=== PATIENT | male | born 1930 | race Caucasian/White ===

== ENCOUNTER 2017-11-15 12:02 | Emergency (ER) | payer MEDICARE, BC, OTHER ==
[2017-11-15 12:08] VITALS: BP 161/96
[2017-11-15] MEDS ORDERED: LORazepam 0.5 MG Tab PO ONE (12:21)
--- NOTE | 2017-11-15 13:07 | EDM.PDOC ---
ED HPI GENERAL MEDICAL PROBLEM - General Chief Complaint: Respiratory Problem Stated Complaint: AMBULANCE Time Seen by Provider: 11/15/17 12:07 Source of Information: Reports: EMS History Limitations: Reports: No Limitations - History of Present Illness INITIAL COMMENTS - FREE TEXT/NARRATIVE: History of present illness: []Patient lives at home with his then called the ambulance while she was showering this morning. Complaint was shortness of breath and loneliness. 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 EMS stated that the call came in as shortness of breath and when they arrived he appeared anxious with stable vital signs. He was stating that he's having some family issues with his kids and is very upset over this. Review of systems: As per history of present illness and below otherwise all systems reviewed and negative. Past medical history: As per history of present illness and as reviewed below otherwise noncontributory. Surgical history: As per history of present illness and as reviewed below otherwise noncontributory. Social history: No reported history of drug or alcohol abuse. Family history: As per history of present illness and as reviewed below otherwise noncontributory. Physical exam: General: Well developed, well nourished in NAD HEENT: Atraumatic, normocephalic, pupils reactive, negative for conjunctival pallor or scleral icterus, mucous membranes moist, throat clear, neck supple, nontender, trachea midline. Lungs: Clear to auscultation, breath sounds equal bilaterally, chest nontender. Heart: S1S2, regular, negative for clicks, rubs, or JVD. Abdomen: Soft, nondistended, nontender. Negative for masses or hepatosplenomegaly. Negative for costovertebral tenderness. Pelvis: Stable nontender. Genitourinary: Deferred. Rectal: Deferred. Extremities: Atraumatic, negative for cords or calf pain. Neurovascular unremarkable. Neuro: Awake, alert, oriented. Cranial nerves II through XII unremarkable. Cerebellum unremarkable. Motor and sensory unremarkable throughout. Exam nonfocal. Diagnostics: []Chest x-ray negative Therapeutics: []Ativan 0.5 MG by mouth given Impression: []Anxiety Plan: []Follow-up with primary care continue regular meds return if symptoms worsen or change Definitive disposition and diagnosis as appropriate pending reevaluation and review of above. 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 Social & Family History - Family History Family Medical History: Noncontributory - Tobacco Use Smoking Status *Q: Never Smoker - Alcohol Use Days Per Week of Alcohol Use: 0 - Recreational Drug Use Recreational Drug Use: No ED ROS GENERAL - Review of Systems Review Of Systems: See Below (See history of present illness) ED EXAM, GENERAL - Physical Exam Exam: See Below (See history of present illness) Course - Vital Signs Last Recorded V/S: Last Vital Signs Temp 97.5 F 11/15/17 12:06 Pulse 82 11/15/17 12:06 Resp 20 11/15/17 12:06 BP 161/96 H 11/15/17 12:06 Pulse Ox 97 11/15/17 12:06 - Orders/Labs/Meds Orders: Active Orders 24 hr Category Date Time Status Chest 1V Frontal [CR] Stat Exams 11/15/17 12:20 Taken Meds: Medications Discontinued Medications Generic Name Dose Route Start Last Admin Trade Name Benny PRN Reason Stop Dose Admin Lorazepam 0.5 mg 11/15/17 12:21 11/15/17 12:33 Ativan PO 11/15/17 12:22 0.5 mg ONETIME ONE Administration Departure - Departure Time of Disposition: 13:06 Disposition: Home, Self-Care 01 Condition: Good Clinical Impression: Anxiety attack - Discharge Information Referrals: PCP,None [Primary Care Provider] - Additional Instructions: The following information is given to patients seen in the emergency department who are being discharged to home. This information is to outline your options for follow-up care. We provide all patients seen in our emergency department with a follow-up referral. The need for follow-up, as well as the timing and circumstances, are variable depending upon the specifics of your emergency department visit. If you don't have a primary care physician on staff, we will provide you with a referral. We always advise you to contact your personal physician following an emergency department visit to inform them of the circumstance of the visit and for follow-up with them and/or the need for any referrals to a consulting specialist. The emergency department will also refer you to a specialist when appropriate. This referral assures that you have the opportunity for follow-up care with a specialist. All of these measure are taken in an effort to provide you with optimal care, which includes your follow-up. Under all circumstances we always encourage you to contact your private physician who remains a resource for coordinating your care. When calling for follow-up care, please make the office aware that this follow-up is from your recent emergency room visit. If for any reason you are refused follow-up, please contact the [facility] Emergency Department at and asked to speak to the emergency department charge nurse. Continue regular meds return if symptoms worsen or change follow-up with primary care as needed [facility] [address] [place] [id number] - My Orders Last 24 Hours: My Active Orders 11/15/17 12:20 Chest 1V Frontal [CR] Stat - Assessment/Plan Last 24 Hours: My Active Orders 11/15/17 12:20 Chest 1V Frontal [CR] Stat
--- NOTE | 2017-11-16 13:36 | CR ---
EXAM DATE: 11/15/17 PATIENT'S AGE: 86 Patient: CLAUDIO HANLEY Facility: [place], [place] Site . Site : [id number] Study: XRay Chest [id number]/7/2018 12:52:09 PM Ordering Physician: Alexander Bailey Final Report: INDICATION: Pain and SOB. TECHNIQUE: Upright portable AP image of the chest. COMPARISON: None. FINDINGS: Lungs and pleural spaces clear. Heart, mediastinum and pulmonary vessels normal. No significant osseous abnormality. IMPRESSION: Negative chest. Dictated by Prabhakar Moore MD @ Nov 15 2017 12:59PM (Electronic Signature) Report Signed by Proxy. ADIN
== END 2017-11-15 13:21 | disposition home or self-care (01) ==
LOC: MW.ED 12:02
DX: F41.9 Anxiety disorder, unspecified (principal)
CPT/HCPCS: 71045; 99285; A9270; 99284

== ENCOUNTER 2018-05-18 13:00 | Observation (INO) | payer MEDICARE, BC ==
[2018-05-18] MEDS ORDERED: Sodium Chloride 0.9% 10 ML Syringe FLUSH PRN (13:12)
[2018-05-18] MEDS ORDERED: Sodium Chloride 0.9% 2.5 ML Syringe FLUSH PRN (13:12)
[2018-05-18] MEDS ORDERED: Sodium Chloride 0.9% 500 ML IV SCH (13:15)
--- NOTE | 2018-05-18 13:18 | EDM.PDOC ---
ED HPI GENERAL MEDICAL PROBLEM - General Chief Complaint: General Stated Complaint: PER PT; HE JUST DOESN'T FEEL GOOD Time Seen by Provider: 05/18/18 13:18 Source of Information: Reports: Patient, Family History Limitations: Reports: No Limitations - History of Present Illness INITIAL COMMENTS - FREE TEXT/NARRATIVE: HISTORY AND PHYSICAL: History of present illness: [Manuel is an 87-year-old male accompanied by his here with complaint of "not feeling well." Past medical history of hypertension and anxiety. Patient is complaining of pain in his shoulders, knees, hips. states he told her he needs to go to the hospital. She states he started breathing heavily after this. states he has been out of his anxiety medications. Patient was seen 6 months ago in the ED for similar symptoms and was treated for an anxiety attack. He denies any chest pain/pressure, diaphoresis, left arm/jaw pain, nausea, vomiting, headache, dizziness, abdominal pain, change in bowels. ] Review of systems: As per history of present illness and below otherwise all systems reviewed and negative. Past medical history: As per history of present illness and as reviewed below otherwise noncontributory. Surgical history: As per history of present illness and as reviewed below otherwise noncontributory. Social history: No reported history of drug or alcohol abuse. Family history: As per history of present illness and as reviewed below otherwise noncontributory. Physical exam: General: Patient lying in no acute distress but breathing heavily. HEENT: Atraumatic, normocephalic, pupils reactive, negative for conjunctival pallor or scleral icterus, mucous membranes moist Lungs: Clear to auscultation, breath sounds equal bilaterally, chest nontender. Heart: S1S2, regular, negative for clicks, rubs Abdomen: Soft, nondistended, nontender. Negative for masses or hepatosplenomegaly. Negative for costovertebral tenderness. Pelvis: Stable nontender. Genitourinary: Deferred. Rectal: Deferred. Extremities: Atraumatic, negative for cords or calf pain. Neurovascular unremarkable. Neuro: Awake, alert, oriented. Cranial nerves II through XII unremarkable. Cerebellum unremarkable. Motor and sensory unremarkable throughout. Exam nonfocal. Notes: Diagnostics: [CBC, CMP, Troponin, PT/INR, UA EKG ] Therapeutics: [IV Ativan 0.5mg IV Rocephin 1gram IV Azithromycin 500mg] Impression: [Pneumonia] Plan: [Discussed with Dr. Medina, patient admitted for observation on IV antibiotics] Definitive disposition and diagnosis as appropriate pending reevaluation and review of above. knee Pain Score (Numeric/FACES): 10 - Related Data Allergies Allergy/AdvReac Type Severity Reaction Status Date / Time No Known Allergies Allergy Verified 05/18/18 13:06 Home Meds: Home Meds ALPRAZolam [Xanax] 11/15/17 [History] High Blood Pressure Medication 11/15/17 [History] Past Medical History HEENT History: Reports: Other (See Below) Other HEENT History: wears glasses, rowdy hearing aids, has top and bottom dentures Cardiovascular History: Reports: Hypertension Respiratory History: Reports: None Gastrointestinal History: Reports: None Genitourinary History: Reports: None Other Genitourinary History: frequent urination Musculoskeletal History: Reports: Arthritis, Other (See Below) Other Musculoskeletal History: 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 Neurological History: Reports: None Psychiatric History: Reports: Anxiety, Depression Endocrine/Metabolic History: Reports: Diabetes, Type II Hematologic History: Reports: None Immunologic History: Reports: None Oncologic (Cancer) History: Reports: None Dermatologic History: Reports: None - Past Surgical History Head Surgeries/Procedures: Reports: None HEENT Surgical History: Reports: None Cardiovascular Surgical History: Reports: None Respiratory Surgical History: Reports: None GI Surgical History: Reports: None Male Surgical History: Reports: None Endocrine Surgical History: Reports: None Neurological Surgical History: Reports: None Musculoskeletal Surgical History: Reports: None Oncologic Surgical History: Reports: None Dermatological Surgical History: Reports: None Social & Family History - Family History Family Medical History: Noncontributory - Tobacco Use Smoking Status *Q: Never Smoker Second Hand Smoke Exposure: No - Caffeine Use Caffeine Use: Reports: Coffee, Soda - Recreational Drug Use Recreational Drug Use: No ED ROS GENERAL - Review of Systems Review Of Systems: ROS reveals no pertinent complaints other than HPI. ED EXAM, GENERAL - Physical Exam Exam: See Below (see dictation) Course - Vital Signs Last Recorded V/S: Last Vital Signs Temp 36.4 C 05/18/18 13:07 Pulse 89 05/18/18 13:07 Resp 18 05/18/18 13:07 BP 124/56 L 05/18/18 13:07 Pulse Ox 96 05/18/18 13:07 - Orders/Labs/Meds Orders: Active Orders 24 hr Category Date Time Status Cardiac Monitoring [RC] . DIRECTED Care 05/18/18 13:12 Active EKG Documentation Completion [RC] STAT Care 05/18/18 13:12 Active Pulse Oximetry [RC] ASDIRECTED Care 05/18/18 13:12 Active CULTURE URINE [RM] Stat Lab 05/18/18 15:07 Ordered UA W/MICROSCOPIC [URIN] Stat Lab 05/18/18 14:30 Ordered Azithromycin [Zithromax] 500 mg Med 05/18/18 15:06 Active Sodium Chloride 0.9% [Normal Saline] 250 ml IV ONETIME Sodium Chloride 0.9% [Normal Saline] 500 ml Med 05/18/18 13:15 Active IV STAT Sodium Chloride 0.9% [Saline Flush] Med 05/18/18 13:12 Active 10 ml FLUSH ASDIRECTED PRN Sodium Chloride 0.9% [Saline Flush] Med 05/18/18 13:12 Active 2.5 ml FLUSH ASDIRECTED PRN cefTRIAXone [Rocephin in Dextrose,Iso-Osm 1 GM/50 ML] 1 Med 05/18/18 15:06 Active gm Premix Bag 1 bag IV ONETIME Saline Lock Insert [OM.PC] Stat Oth 05/18/18 13:12 Ordered Medication Orders Sodium Chloride (Normal Saline) 500 mls @ 999 mls/hr IV STAT [facility] Last Admin: 05/18/18 13:30 Dose: 999 mls/hr Azithromycin 500 mg/ Sodium (Chloride) 250 mls @ 250 mls/hr IV ONETIME ONE Stop: 05/18/18 16:05 Ceftriaxone Sodium/Dextrose 1 (gm/ Premix) 50 mls @ 100 mls/hr IV ONETIME ONE Stop: 05/18/18 15:35 Sodium Chloride (Saline Flush) 10 ml FLUSH ASDIRECTED PRN PRN Reason: Keep Vein Open Last Admin: 05/18/18 13:30 Dose: 10 ml Sodium Chloride (Saline Flush) 2.5 ml FLUSH ASDIRECTED PRN PRN Reason: Keep Vein Open Last Admin: 05/18/18 13:30 Dose: 2.5 ml Labs: Laboratory Tests 05/18/18 05/18/18 05/18/18 Range/Units 13:10 13:10 13:10 WBC 9.03 (4.0-11.0) K/uL RBC 4.21 L (4.50-5.90) M/uL Hgb 13.2 (13.0-17.0) g/dL Hct 39.4 (38.0-50.0) % MCV 93.6 (80.0-98.0) fL MCH 31.4 (27.0-32.0) pg MCHC 33.5 (31.0-37.0) g/dL RDW Std Deviation 50.1 (28.0-62.0) fl RDW Coeff of Gaye 15 (11.0-15.0) % Plt Count 182 (150-400) K/uL MPV 11.40 (7.40-12.00) fL Neut % (Auto) 68.1 (48.0-80.0) % Lymph % (Auto) 15.4 L (16.0-40.0) % Bradford % (Auto) 8.7 (0.0-15.0) % Eos % (Auto) 7.0 (0.0-7.0) % Baso % (Auto) 0.8 (0.0-1.5) % Neut # (Auto) 6.2 H (1.4-5.7) K/uL Lymph # (Auto) 1.4 (0.6-2.4) K/uL Bradford # (Auto) 0.8 (0.0-0.8) K/uL Eos # (Auto) 0.6 (0.0-0.7) K/uL Baso # (Auto) 0.1 (0.0-0.1) K/uL Nucleated RBC % 0.0 /100WBC Nucleated RBCs # 0 K/uL INR 0.99 Sodium 139 (136-148) mmol/L Potassium 3.8 (3.5-5.1) mmol/L Chloride 104 (98-107) mmol/L Carbon Dioxide 27.8 (21.0-32.0) mmol/L BUN 28 H (7.0-18.0) mg/dL Creatinine 1.3 (0.8-1.3) mg/dL Est Cr Clr Drug Dosing 36.81 mL/min Estimated GFR (MDRD) 52.3 ml/min Glucose 98 (74-106) mg/dL Calcium 8.6 (8.5-10.1) mg/dL Total Bilirubin 0.8 (0.2-1.0) mg/dL AST 18 (15-37) IU/L ALT 18 (14-63) IU/L Alkaline Phosphatase 69 (46-116) U/L Troponin I < 0.050 (0.000-0.056) ng/mL B-Natriuretic Peptide (<100) PG/ML Total Protein 6.6 (6.4-8.2) g/dL Albumin 3.4 (3.4-5.0) g/dL Globulin 3.2 (2.0-3.5) g/dL Albumin/Globulin Ratio 1.1 L (1.3-2.8) Urine Color Urine Appearance Urine pH (5.0-8.0) Ur Specific [place] (1.001-1.035) Urine Protein (NEGATIVE) mg/dL Urine Glucose (UA) (NEGATIVE) mg/dL Urine Ketones (NEGATIVE) mg/dL Urine Occult Blood (NEGATIVE) Urine Nitrite (NEGATIVE) Urine Bilirubin (NEGATIVE) Urine Urobilinogen (<2.0) EU/dL Ur Leukocyte Esterase (NEGATIVE) Urine RBC (0-2/HPF) Urine WBC (0-5/HPF) Ur Epithelial Cells (NONE-FEW) Urine Bacteria (NEGATIVE) 05/18/18 05/18/18 Range/Units 13:10 14:30 WBC (4.0-11.0) K/uL RBC (4.50-5.90) M/uL Hgb (13.0-17.0) g/dL Hct (38.0-50.0) % MCV (80.0-98.0) fL MCH (27.0-32.0) pg MCHC (31.0-37.0) g/dL RDW Std Deviation (28.0-62.0) fl RDW Coeff of Gaye (11.0-15.0) % Plt Count (150-400) K/uL MPV (7.40-12.00) fL Neut % (Auto) (48.0-80.0) % Lymph % (Auto) (16.0-40.0) % Bradford % (Auto) (0.0-15.0) % Eos % (Auto) (0.0-7.0) % Baso % (Auto) (0.0-1.5) % Neut # (Auto) (1.4-5.7) K/uL Lymph # (Auto) (0.6-2.4) K/uL Bradford # (Auto) (0.0-0.8) K/uL Eos # (Auto) (0.0-0.7) K/uL Baso # (Auto) (0.0-0.1) K/uL Nucleated RBC % /100WBC Nucleated RBCs # K/uL INR Sodium (136-148) mmol/L Potassium (3.5-5.1) mmol/L Chloride (98-107) mmol/L Carbon Dioxide (21.0-32.0) mmol/L BUN (7.0-18.0) mg/dL Creatinine (0.8-1.3) mg/dL Est Cr Clr Drug Dosing mL/min Estimated GFR (MDRD) ml/min Glucose (74-106) mg/dL Calcium (8.5-10.1) mg/dL Total Bilirubin (0.2-1.0) mg/dL AST (15-37) IU/L ALT (14-63) IU/L Alkaline Phosphatase (46-116) U/L Troponin I (0.000-0.056) ng/mL B-Natriuretic Peptide 647 H (<100) PG/ML Total Protein (6.4-8.2) g/dL Albumin (3.4-5.0) g/dL Globulin (2.0-3.5) g/dL Albumin/Globulin Ratio (1.3-2.8) Urine Color YELLOW Urine Appearance CLEAR Urine pH 7.0 (5.0-8.0) Ur Specific [place] 1.015 (1.001-1.035) Urine Protein NEGATIVE (NEGATIVE) mg/dL Urine Glucose (UA) NEGATIVE (NEGATIVE) mg/dL Urine Ketones NEGATIVE (NEGATIVE) mg/dL Urine Occult Blood NEGATIVE (NEGATIVE) Urine Nitrite NEGATIVE (NEGATIVE) Urine Bilirubin NEGATIVE (NEGATIVE) Urine Urobilinogen 1.0 (<2.0) EU/dL Ur Leukocyte Esterase SMALL (NEGATIVE) Urine RBC 0-1 (0-2/HPF) Urine WBC 0-1 (0-5/HPF) Ur Epithelial Cells RARE (NONE-FEW) Urine Bacteria RARE (NEGATIVE) Meds: Medications Generic Name Dose Route Start Last Admin Trade Name Freq PRN Reason Stop Dose Admin Sodium Chloride 500 mls @ 999 mls/hr 05/18/18 13:15 05/18/18 13:30 Normal Saline IV 999 mls/hr STAT ISHAN Administration Azithromycin 500 mg/ Sodium 250 mls @ 250 mls/hr 05/18/18 15:06 Chloride IV 05/18/18 16:05 ONETIME ONE Ceftriaxone Sodium/Dextrose 1 50 mls @ 100 mls/hr 05/18/18 15:06 gm/ Premix IV 05/18/18 15:35 ONETIME ONE Sodium Chloride 10 ml 05/18/18 13:12 05/18/18 13:30 Saline Flush FLUSH 10 ml ASDIRECTED PRN Administration Keep Vein Open Sodium Chloride 2.5 ml 05/18/18 13:12 05/18/18 13:30 Saline Flush FLUSH 2.5 ml ASDIRECTED PRN Administration Keep Vein Open Discontinued Medications Generic Name Dose Route Start Last Admin Trade Name Frecourtney PRN Reason Stop Dose Admin Lorazepam 0.5 mg 05/18/18 13:24 05/18/18 13:32 Ativan IVPUSH 05/18/18 13:25 0.5 mg ONETIME ONE Administration Departure - Departure Time of Disposition: 15:12 Disposition: Refer to Observation Clinical Impression: Pneumonia - Discharge Information Referrals: PCP,None [Primary Care Provider] - Forms: ED Department Discharge - My Orders Last 24 Hours: My Active Orders 05/18/18 13:12 Cardiac Monitoring [RC] . DIRECTED EKG Documentation Completion [RC] STAT Pulse Oximetry [RC] ASDIRECTED Sodium Chloride 0.9% [Saline Flush] 10 ml FLUSH ASDIRECTED PRN Sodium Chloride 0.9% [Saline Flush] 2.5 ml FLUSH ASDIRECTED PRN Saline Lock Insert [OM.PC] Stat 05/18/18 13:15 Sodium Chloride 0.9% [Normal Saline] 500 ml IV STAT 05/18/18 14:30 UA W/MICROSCOPIC [URIN] Stat 05/18/18 15:06 Azithromycin [Zithromax] 500 mg Sodium Chloride 0.9% [Normal Saline] 250 ml IV ONETIME cefTRIAXone [Rocephin in Dextrose,Iso-Osm 1 GM/50 ML] 1 gm Premix Bag 1 bag IV ONETIME 05/18/18 15:07 CULTURE URINE [RM] Stat - Assessment/Plan Last 24 Hours: My Active Orders 05/18/18 13:12 Cardiac Monitoring [RC] . DIRECTED EKG Documentation Completion [RC] STAT Pulse Oximetry [RC] ASDIRECTED Sodium Chloride 0.9% [Saline Flush] 10 ml FLUSH ASDIRECTED PRN Sodium Chloride 0.9% [Saline Flush] 2.5 ml FLUSH ASDIRECTED PRN Saline Lock Insert [OM.PC] Stat 05/18/18 13:15 Sodium Chloride 0.9% [Normal Saline] 500 ml IV STAT 05/18/18 14:30 UA W/MICROSCOPIC [URIN] Stat 05/18/18 15:06 Azithromycin [Zithromax] 500 mg Sodium Chloride 0.9% [Normal Saline] 250 ml IV ONETIME cefTRIAXone [Rocephin in Dextrose,Iso-Osm 1 GM/50 ML] 1 gm Premix Bag 1 bag IV ONETIME 05/18/18 15:07 CULTURE URINE [RM] Stat
[2018-05-18] MEDS ORDERED: LORazepam 2 MG/ML SDV IVPUSH ONE (13:24)
--- NOTE | 2018-05-18 14:05 | CR ---
EXAMINATION: Portable chest radiograph. HISTORY: Shortness of breath. FINDINGS: The trachea is midline. The cardiomediastinal silhouette is stable. Mild patchy infiltrate within the lung bases bilaterally. Trace left pleural effusion is noted excluded. No pneumothorax. Degenerative changes noted within the shoulders bilaterally. IMPRESSION: Trace bilateral pulmonary infiltrates, left greater than right. This could represent developing pneum onia versus edema.
[2018-05-18 14:06] LABS: CHLORIDE,CL 104 mmol/L (98-107); SODIUM,NA 139 mmol/L (136-148)
[2018-05-18] MEDS ORDERED: Azithromycin 500 MG in Sodium Chloride 0.9% 250 ML IV ONE (15:06)
[2018-05-18] MEDS ORDERED: cefTRIAXone 1 GM in Premix Bag 1 BAG IV ONE (15:06)
[2018-05-18] MEDS ORDERED: Sodium Chloride 0.9% 1,000 ML IV ONE (15:16)
[2018-05-18] MEDS: Sodium Chloride 0.9% 1,000 ML IV ONE ×2 (15:22→16:05)
--- NOTE | 2018-05-18 16:06 | PCM.HP ---
H&P History of Present Illness - General Date of Service: 05/18/18 Admit Problem/Dx: Admission Diagnosis/Problem Admission Diagnosis/Problem Pneumonia Source of Information: Patient, Old Records History Limitations: Reports: No Limitations - History of Present Illness Initial Comments - Free Text/Narative: This 87 year old male with pmh of HTN, HLD and anxiety presented to the ED today with concerns of generalized body aches and "just not feeling well." He reports he was at home and just didn't feel well, he was having pain in a lot of his joints and especially his knees. No family in room with him at this time. He denies cough, chest pain, SOB or abdominal pain. He denies urinary symptoms, black or bloody BMs. He reports his stools are normal. He is eating and drinking well, actually very hungry right now. He reports he ran out of his anxiety medications and got nervous with this. It appears he was seen in the ED a few months ago for similar symptoms and given medication and he was much improved. Denies orthopnea, weight gain or swelling to lower extremities. He denies smoking history, rare alcohol use. In the ED he was noted to be afebrile, no leukocytosis, VS stable. BUN 28, Cr 1.3. BNP elevated 647, unclear of baseline. He denies NH CAD or hx of CHF. CXR revealed trace bilateral pulmonary infiltrates L > R. Consider pneumonia vs edema. ED recommended admission for observation due to early pneumonia. [facility] Pain Score (Numeric/FACES): 4 - Related Data Allergies/Adverse Reactions: Allergies Allergy/AdvReac Type Severity Reaction Status Date / Time No Known Allergies Allergy Verified 05/18/18 13:06 Home Medications: Home Meds ALPRAZolam [Xanax] 0.25 mg PO TID 11/15/17 [History] Aspirin [Adult Low Dose Aspirin EC] 81 mg PO DAILY 05/18/18 [History] Cetirizine HCl [Zyrtec] 10 mg PO BEDTIME 05/18/18 [History] Citalopram [Citalopram HBr] 40 mg PO DAILY 05/18/18 [History] Finasteride 5 mg PO DAILY 05/18/18 [History] HCTZ/Triamterene [Maxzide 25-37.5 MG] 1 tab PO DAILY 05/18/18 [History] Latanoprost [Xalatan 0.005% Ophth Soln] 1 drop EYEBOTH BEDTIME 05/18/18 [History ] Lutein 20 mg PO DAILY 05/18/18 [History] Naproxen 500 mg PO BID PRN 05/18/18 [History] Simvastatin [Zocor] 5 mg PO BEDTIME 05/18/18 [History] Tamsulosin HCl 0.4 mg PO DAILY 05/18/18 [History] Past Medical History HEENT History: Reports: Other (See Below) Other HEENT History: wears glasses, rowdy hearing aids, has top and bottom dentures Cardiovascular History: Reports: High Cholesterol, Hypertension. Denies: CAD, Heart Failure, [place] Respiratory History: Reports: None. Denies: Asthma, COPD, PE Gastrointestinal History: Reports: Helicobacter Pylori (hx of). 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 Denies: CVA, TIA Psychiatric History: Reports: Anxiety Endocrine/Metabolic History: Reports: None. Denies: Diabetes, Type II, Hypothyroidism Hematologic History: Reports: None Immunologic History: Reports: None Oncologic (Cancer) History: Reports: None Dermatologic History: Reports: None - Past Surgical History Head Surgeries/Procedures: Reports: None HEENT Surgical History: Reports: None Cardiovascular Surgical History: Reports: None Respiratory Surgical History: Reports: None GI Surgical History: Reports: None Male Surgical History: Reports: None Endocrine Surgical History: Reports: None Neurological Surgical History: Reports: None Musculoskeletal Surgical History: Reports: None Oncologic Surgical History: Reports: None Dermatological Surgical History: Reports: None Social & Family History - Family History Family Medical History: Noncontributory - Tobacco Use Smoking Status *Q: Never Smoker Second Hand Smoke Exposure: No - Caffeine Use Caffeine Use: Reports: Coffee, Soda - Alcohol Use Alcohol Use History: No - Recreational Drug Use Recreational Drug Use: No - Living Situation & Occupation Living situation: Reports: Occupation: Retired () H&P Review of Systems - Review of Systems: Review Of Systems: See Below Free Text/Narrative: Very vague on symptoms. General: Reports: Malaise. Denies: Fever, Chills HEENT: Reports: No Symptoms. Denies: Headaches, Sinus Congestion, Vertigo Pulmonary: Reports: No Symptoms. Denies: Shortness of Breath, Wheezing, Cough, Sputum Cardiovascular: Reports: No Symptoms. Denies: Chest Pain, Palpitations, Orthopnea, Edema, Lightheadedness Gastrointestinal: Reports: No Symptoms. Denies: Abdominal Pain, Anorexia, Black Stool, Bloody Stool, Diarrhea, Decreased Appetite, Nausea, Vomiting Genitourinary: Reports: Frequency (realted to BPH). Denies: Dysuria, Burning, Pain Musculoskeletal: Reports: Joint Pain (reports all joints hurt, now feeling better after Ativan. Knees bilaterally hurt all the time. ) Skin: Reports: No Symptoms. Denies: Erythema Psychiatric: Reports: No Symptoms Neurological: Reports: No Symptoms Hematologic/Lymphatic: Reports: No Symptoms Immunologic: Reports: No Symptoms Exam - Exam Exam: See Below - Vital Signs Vital Signs: Last Vital Signs Temp 97.5 F 05/18/18 13:07 Pulse 89 05/18/18 13:07 Resp 18 05/18/18 13:07 BP 124/56 L 05/18/18 13:07 Pulse Ox 96 05/18/18 13:07 Weight: 81.647 kg - Exam Quality Assessment: No: Supplemental Oxygen General: Alert, Oriented, Cooperative HEENT: Conjunctiva Clear, Nares Patent, Posterior Pharynx Clear, Pupils Equal, Other ([place]). No: Mucosa Moist & [place] (dry mucous membranes) Neck: Supple, Trachea Midline, Full Range of Motion. No: Lymphadenopathy Lungs: Clear to Auscultation, Normal Respiratory Effort. No: Decreased Breath Sounds, Crackles, Wheezing Cardiovascular: Regular Rate, Regular Rhythm, Normal S1, Normal S2. No: Systolic Murmur GI/Abdominal Exam: Normal Bowel Sounds, Soft, Non-Tender Back Exam: Normal Inspection, Full Range of Motion, NT Extremities: Normal Inspection, Normal Range of Motion, Non-Tender, No Pedal Edema, Normal Capillary Refill Neuro Extensive - Mental Status: Alert, Oriented x3 Neuro Extensive - Motor, Sensory, Reflexes: CN II-XII Intact Psychiatric: Alert, Normal Affect, Normal Mood - Patient Data Lab Results Last 24 hrs: Laboratory Results - last 24 hr 05/18/18 05/18/18 05/18/18 Range/Units 13:10 13:10 13:10 WBC 9.03 (4.0-11.0) K/uL RBC 4.21 L (4.50-5.90) M/uL Hgb 13.2 (13.0-17.0) g/dL Hct 39.4 (38.0-50.0) % MCV 93.6 (80.0-98.0) fL MCH 31.4 (27.0-32.0) pg MCHC 33.5 (31.0-37.0) g/dL RDW Std Deviation 50.1 (28.0-62.0) fl RDW Coeff of Gaye 15 (11.0-15.0) % Plt Count 182 (150-400) K/uL MPV 11.40 (7.40-12.00) fL Neut % (Auto) 68.1 (48.0-80.0) % Lymph % (Auto) 15.4 L (16.0-40.0) % [place] % (Auto) 8.7 (0.0-15.0) % Eos % (Auto) 7.0 (0.0-7.0) % Baso % (Auto) 0.8 (0.0-1.5) % Neut # (Auto) 6.2 H (1.4-5.7) K/uL Lymph # (Auto) 1.4 (0.6-2.4) K/uL [place] # (Auto) 0.8 (0.0-0.8) K/uL Eos # (Auto) 0.6 (0.0-0.7) K/uL Baso # (Auto) 0.1 (0.0-0.1) K/uL Nucleated RBC % 0.0 /100WBC Nucleated RBCs # 0 K/uL INR 0.99 Sodium 139 (136-148) mmol/L Potassium 3.8 (3.5-5.1) mmol/L Chloride 104 (98-107) mmol/L Carbon Dioxide 27.8 (21.0-32.0) mmol/L BUN 28 H (7.0-18.0) mg/dL Creatinine 1.3 (0.8-1.3) mg/dL Est Cr Clr Drug Dosing 36.81 mL/min Estimated GFR (MDRD) 52.3 ml/min Glucose 98 (74-106) mg/dL Calcium 8.6 (8.5-10.1) mg/dL Total Bilirubin 0.8 (0.2-1.0) mg/dL AST 18 (15-37) IU/L ALT 18 (14-63) IU/L Alkaline Phosphatase 69 (46-116) U/L Troponin I < 0.050 (0.000-0.056) ng/mL B-Natriuretic Peptide (<100) PG/ML Total Protein 6.6 (6.4-8.2) g/dL Albumin 3.4 (3.4-5.0) g/dL Globulin 3.2 (2.0-3.5) g/dL Albumin/Globulin Ratio 1.1 L (1.3-2.8) Urine Color Urine Appearance Urine pH (5.0-8.0) Ur Specific [place] (1.001-1.035) Urine Protein (NEGATIVE) mg/dL Urine Glucose (UA) (NEGATIVE) mg/dL Urine Ketones (NEGATIVE) mg/dL Urine Occult Blood (NEGATIVE) Urine Nitrite (NEGATIVE) Urine Bilirubin (NEGATIVE) Urine Urobilinogen (<2.0) EU/dL Ur Leukocyte Esterase (NEGATIVE) Urine RBC (0-2/HPF) Urine WBC (0-5/HPF) Ur Epithelial Cells (NONE-FEW) Urine Bacteria (NEGATIVE) 05/18/18 05/18/18 Range/Units 13:10 14:30 WBC (4.0-11.0) K/uL RBC (4.50-5.90) M/uL Hgb (13.0-17.0) g/dL Hct (38.0-50.0) % MCV (80.0-98.0) fL MCH (27.0-32.0) pg MCHC (31.0-37.0) g/dL RDW Std Deviation (28.0-62.0) fl RDW Coeff of Gaye (11.0-15.0) % Plt Count (150-400) K/uL MPV (7.40-12.00) fL Neut % (Auto) (48.0-80.0) % Lymph % (Auto) (16.0-40.0) % [place] % (Auto) (0.0-15.0) % Eos % (Auto) (0.0-7.0) % Baso % (Auto) (0.0-1.5) % Neut # (Auto) (1.4-5.7) K/uL Lymph # (Auto) (0.6-2.4) K/uL [place] # (Auto) (0.0-0.8) K/uL Eos # (Auto) (0.0-0.7) K/uL Baso # (Auto) (0.0-0.1) K/uL Nucleated RBC % /100WBC Nucleated RBCs # K/uL INR Sodium (136-148) mmol/L Potassium (3.5-5.1) mmol/L Chloride (98-107) mmol/L Carbon Dioxide (21.0-32.0) mmol/L BUN (7.0-18.0) mg/dL Creatinine (0.8-1.3) mg/dL Est Cr Clr Drug Dosing mL/min Estimated GFR (MDRD) ml/min Glucose (74-106) mg/dL Calcium (8.5-10.1) mg/dL Total Bilirubin (0.2-1.0) mg/dL AST (15-37) IU/L ALT (14-63) IU/L Alkaline Phosphatase (46-116) U/L Troponin I (0.000-0.056) ng/mL B-Natriuretic Peptide 647 H (<100) PG/ML Total Protein (6.4-8.2) g/dL Albumin (3.4-5.0) g/dL Globulin (2.0-3.5) g/dL Albumin/Globulin Ratio (1.3-2.8) Urine Color YELLOW Urine Appearance CLEAR Urine pH 7.0 (5.0-8.0) Ur Specific [place] 1.015 (1.001-1.035) Urine Protein NEGATIVE (NEGATIVE) mg/dL Urine Glucose (UA) NEGATIVE (NEGATIVE) mg/dL Urine Ketones NEGATIVE (NEGATIVE) mg/dL Urine Occult Blood NEGATIVE (NEGATIVE) Urine Nitrite NEGATIVE (NEGATIVE) Urine Bilirubin NEGATIVE (NEGATIVE) Urine Urobilinogen 1.0 (<2.0) EU/dL Ur Leukocyte Esterase SMALL (NEGATIVE) Urine RBC 0-1 (0-2/HPF) Urine WBC 0-1 (0-5/HPF) Ur Epithelial Cells RARE (NONE-FEW) Urine Bacteria RARE (NEGATIVE) Result Diagrams: 05/18/18 13:10 05/18/18 13:10 EKG INTERPRETATION EKG Date: 05/18/18 Rhythm: NSR Rate (Beats/Min): 80 P-Wave: Present QRS: LBBB ST-T: Normal QT: Normal *Q Meaningful Use (ADM) - VTE Risk Assess *Q Each Risk Factor Represents 1 Point: Serious lung disease including pneumonia Total Score 1 Point Risk Factors: 1 Each Risk Factor Represents 2 Points: None Total Score 2 Point Risk Factors: 0 Each Risk Factor Represents 3 Points: Age 75 Years or Greater Total Score 3 Point Risk Factors: 3 Each Risk Factor Represents 5 Points: None Total Score 5 Point Risk Factors: 0 Venous Thromboembolism Risk Factor Score *Q: 4 - Problem List (1) Pneumonia SNOMED Code(s): 876522494 ICD Code: J18.9 - PNEUMONIA, UNSPECIFIED ORGANISM Status: Acute Current Visit: Yes Qualifiers: Pneumonia type: due to unspecified organism Laterality: bilateral Lung location: lower lobe of lung Qualified Code(s): J18.1 - Lobar pneumonia, unspecified organism (2) Anxiety SNOMED Code(s): 30449437 ICD Code: F41.9 - ANXIETY DISORDER, UNSPECIFIED Status: Chronic Current Visit: Yes (3) HTN (hypertension) SNOMED Code(s): 02564543 ICD Code: I10 - ESSENTIAL (PRIMARY) HYPERTENSION Status: Chronic Current Visit: Yes Qualifiers: Hypertension type: essential hypertension Qualified Code(s): I10 - Essential (primary) hypertension (4) HLD (hyperlipidemia) SNOMED Code(s): 24844857 ICD Code: E78.5 - HYPERLIPIDEMIA, UNSPECIFIED Status: Chronic Current Visit: Yes (5) BPH (benign prostatic hyperplasia) SNOMED Code(s): 408584403 ICD Code: N40.0 - BENIGN PROSTATIC HYPERPLASIA WITHOUT LOWER URINRY TRACT SYMP Status: Chronic Current Visit: Yes Problem List Initiated/Reviewed/Updated: Yes Orders Last 24hrs: Active Orders 24 hr Category Date Time Status Admission Status [Patient Status] [ADT] Stat ADT 05/18/18 15:19 Active Cardiac Monitoring [RC] . DIRECTED Care 05/18/18 13:12 Active EKG Documentation Completion [RC] STAT Care 05/18/18 13:12 Active Pulse Oximetry [RC] ASDIRECTED Care 05/18/18 13:12 Active CULTURE URINE [RM] Stat Lab 05/18/18 14:30 Received UA W/MICROSCOPIC [URIN] Stat Lab 05/18/18 14:30 Ordered Azithromycin [Zithromax] 500 mg Med 05/18/18 15:06 Active Sodium Chloride 0.9% [Normal Saline] 250 ml IV ONETIME Sodium Chloride 0.9% [Normal Saline] 1,000 ml Med 05/18/18 15:16 Active IV STAT Sodium Chloride 0.9% [Normal Saline] 500 ml Med 05/18/18 13:15 Active IV STAT Sodium Chloride 0.9% [Saline Flush] Med 05/18/18 13:12 Active 10 ml FLUSH ASDIRECTED PRN Sodium Chloride 0.9% [Saline Flush] Med 05/18/18 13:12 Active 2.5 ml FLUSH ASDIRECTED PRN Saline Lock Insert [OM.PC] Stat Oth 05/18/18 13:12 Ordered Medication Orders Sodium Chloride (Normal Saline) 500 mls @ 999 mls/hr IV STAT ISHAN Last Admin: 05/18/18 13:30 Dose: 999 mls/hr Azithromycin 500 mg/ Sodium (Chloride) 250 mls @ 250 mls/hr IV ONETIME ONE Stop: 05/18/18 16:05 Sodium Chloride (Normal Saline) 1,000 mls @ 125 mls/hr IV STAT ONE Stop: 05/18/18 23:15 Last Admin: 05/18/18 15:23 Dose: 125 mls/hr Sodium Chloride (Saline Flush) 10 ml FLUSH ASDIRECTED PRN PRN Reason: Keep Vein Open Last Admin: 05/18/18 13:30 Dose: 10 ml Sodium Chloride (Saline Flush) 2.5 ml FLUSH ASDIRECTED PRN PRN Reason: Keep Vein Open Last Admin: 05/18/18 13:30 Dose: 2.5 ml Assessment/Plan Comment:: This 87 year old male admitted for early pneumonia and anxiety 1. Pneumonia: NO leukocytosis and VS stable. Will treat with Azithromycin and Rocephin. Obtain sputum if possible, but patient denies coughing. NO fevers. 2. Anxiety: Reports being out of medication at home and became anxious because of this. Will conotinue Xanax at home dosing. 3. HTN: Stable, continue anti-hypertensives. 4. Bilateral knee pain: Improved since in ED, reports this is all the time. Takes Tylenol for pain. No erythema noted to knees or other joints. will monitor. Hurts worse with ambulation. Ambulates with cane. VTE prophylaxis: Heparin Dispo: 1 day.
[2018-05-18] MEDS ORDERED: Ondansetron 4 MG/2 ML SDV IVPUSH PRN (16:20)
[2018-05-18] MEDS ORDERED: Albuterol/Ipratropium 3.0-0.5 MG/3 ML Neb Soln NEB PRN (16:20)
[2018-05-18] MEDS ORDERED: Acetaminophen 325 MG Tab PO PRN (16:20)
[2018-05-18] MEDS: Heparin Sodium 5,000 Units/ML Vial SUBCUT SCH (20:37)
[2018-05-18] MEDS ORDERED: Latanoprost 0.005% Ophth Soln 2.5 ML Bottle EYEBOTH SCH (21:00)
[2018-05-18] MEDS ORDERED: Simvastatin 10 MG Tab PO SCH (21:00)
[2018-05-18] MEDS ORDERED: Cetirizine 10 MG Tab PO SCH (21:00)
[2018-05-18] MEDS: ALPRAZolam 0.25 MG Tab PO SCH (21:05)
[2018-05-19] MEDS: ALPRAZolam 0.25 MG Tab PO SCH (06:58)
--- NOTE | 2018-05-19 08:29 | PCM.DCSUM1 ---
Discharge Summary - Hospital Course Brief History: This 87 year old male with pmh of HTN, HLD and anxiety presented to the ED today with concerns of generalized body aches and "just not feeling well." He reports he was at home and just didn't feel well, he was having pain in a lot of his joints and especially his knees. No family in room with him at this time. He denies cough, chest pain, SOB or abdominal pain. He denies urinary symptoms, black or bloody BMs. He reports his stools are normal. He is eating and drinking well, actually very hungry right now. He reports he ran out of his anxiety medications and got nervous with this. It appears he was seen in the ED a few months ago for similar symptoms and given medication and he was much improved. Denies orthopnea, weight gain or swelling to lower extremities. He denies smoking history, rare alcohol use. In the ED he was noted to be afebrile, no leukocytosis, VS stable. BUN 28, Cr 1.3. BNP elevated 647, unclear of baseline. He denies NC CAD or hx of CHF. CXR revealed trace bilateral pulmonary infiltrates L > R. Consider pneumonia vs edema. ED recommended admission for observation due to early pneumonia. PCP, [place] [facility]. - Discharge Data Discharge Date: 05/19/18 Discharge Disposition: Home, Self-Care 01 Condition: Good - Discharge Diagnosis/Problem(s) (1) Pneumonia SNOMED Code(s): 031669579 ICD Code: J18.9 - PNEUMONIA, UNSPECIFIED ORGANISM Status: Acute Current Visit: Yes Qualifiers: Pneumonia type: due to unspecified organism Laterality: bilateral Lung location: lower lobe of lung Qualified Code(s): J18.1 - Lobar pneumonia, unspecified organism (2) Anxiety SNOMED Code(s): 68488017 ICD Code: F41.9 - ANXIETY DISORDER, UNSPECIFIED Status: Chronic Current Visit: Yes (3) HTN (hypertension) SNOMED Code(s): 18125854 ICD Code: I10 - ESSENTIAL (PRIMARY) HYPERTENSION Status: Chronic Current Visit: Yes Qualifiers: Hypertension type: essential hypertension Qualified Code(s): I10 - Essential (primary) hypertension (4) HLD (hyperlipidemia) SNOMED Code(s): 39320710 ICD Code: E78.5 - HYPERLIPIDEMIA, UNSPECIFIED Status: Chronic Current Visit: Yes (5) BPH (benign prostatic hyperplasia) SNOMED Code(s): 061977588 ICD Code: N40.0 - BENIGN PROSTATIC HYPERPLASIA WITHOUT LOWER URINRY TRACT SYMP Status: Chronic Current Visit: Yes - Patient Instructions Diet: Heart Healthy Diet Activity: As Tolerated, No Strenuous Activities Showering/Bathing: May Shower Notify Provider of: Fever, Increased Pain, Nausea and/or Vomiting - Discharge Plan *PRESCRIPTION DRUG MONITORING PROGRAM REVIEWED*: Not Applicable *COPY OF PRESCRIPTION DRUG MONITORING REPORT IN PATIENT ARNEL: Not Applicable Prescriptions/Med Rec: Azithromycin [Zithromax] 500 mg PO Q24H 3 Days #6 tablet Home Medications: Home Meds ALPRAZolam [Xanax] 0.25 mg PO TID 11/15/17 [History] Cetirizine HCl [Zyrtec] 10 mg PO BEDTIME 05/18/18 [History] Citalopram [Citalopram HBr] 40 mg PO DAILY 05/18/18 [History] Finasteride 5 mg PO DAILY 05/18/18 [History] HCTZ/Triamterene [Maxzide 25-37.5 MG] 1 tab PO DAILY 05/18/18 [History] Latanoprost [Xalatan 0.005% Ophth Soln] 1 drop EYEBOTH BEDTIME 05/18/18 [History ] Lutein/Min/Vit C/Vit E Acetate [Ocuvite Lutein] 1 cap PO DAILY 05/18/18 [History ] Naproxen 500 mg PO BID PRN 05/18/18 [History] Simvastatin [Zocor] 5 mg PO BEDTIME 05/18/18 [History] Tamsulosin HCl 0.4 mg PO DAILY 05/18/18 [History] traZODone HCl [Trazodone HCl] 50 mg PO BEDTIME 05/18/18 [History] Azithromycin [Zithromax] 500 mg PO Q24H 3 Days #6 tablet 05/19/18 [Rx] Patient Handouts: Azithromycin tablets, Community-Acquired Pneumonia, Adult, [id number] Referrals: [place] [facility] [Outside] - 05/25/18 8:30 am (clinic follow up at 8:30 and 9:00 am. ) - Discharge Summary/Plan Comment DC Time >30 min.: No Discharge Summary/Plan Comment: Discharge Diagnoses: Pneumonia Anxiety Chronic bilateral knee pain HTN HLD Manuel was admitted for suspected CAP. He was treated with Azithromycin and Rocephin overnight. He is sitting up on the edge of the bed this morning, eating breakfast. Feels good today. Having knee pain still. No cough, fevers, or shortness of breath. he is alert and oriented. No anxiety noted this morning. He will be discharged home with follow up with PCP in 1 week. Continue all home medications. Will give Azithromycin 500 mg by mouth daily for 3 more days. He is to return to ED or clinic if concerns should arise. - General Info Date of Service: 05/19/18 Admission Dx/Problem (Free Text: Admission Diagnosis/Problem Admission Diagnosis/Problem Pneumonia Subjective Update: Sitting up on edge of bed, eating breakfast. Reports feeling good. Having some knee pain, which is at baseline. No chest pain, SOB , cough or fevers. Functional Status: Reports: Pain Controlled, Tolerating Diet, Ambulating, Urinating - Review of Systems General: Reports: No Symptoms. Denies: Fever, Weakness, Malaise HEENT: Reports: No Symptoms. Denies: Headaches, Sore Throat, Visual Changes Pulmonary: Reports: No Symptoms. Denies: Shortness of Breath Cardiovascular: Reports: No Symptoms. Denies: Chest Pain, Palpitations, Edema Gastrointestinal: Reports: No Symptoms. Denies: Abdominal Pain, Nausea, Vomiting Genitourinary: Reports: No Symptoms. Denies: Dysuria, Frequency, Burning Musculoskeletal: Reports: No Symptoms Neurological: Reports: No Symptoms Psychiatric: Reports: No Symptoms - Patient Data Vitals - Most Recent: Last Vital Signs Temp 97.0 F 05/19/18 04:00 Pulse 90 05/19/18 04:00 Resp 19 05/19/18 04:00 BP 130/78 05/19/18 04:00 Pulse Ox 92 L 05/19/18 04:00 Weight - Most Recent: 198.1 kg I&O - Last 24 hours: Intake & Output 05/18/18 05/19/18 05/19/18 22:59 06:59 14:59 Intake Total 150 Output Total 100 Balance 50 Lab Results - Last 24 hrs: Laboratory Results - last 24 hr 05/18/18 05/18/18 05/18/18 Range/Units 13:10 13:10 13:10 WBC 9.03 (4.0-11.0) K/uL RBC 4.21 L (4.50-5.90) M/uL Hgb 13.2 (13.0-17.0) g/dL Hct 39.4 (38.0-50.0) % MCV 93.6 (80.0-98.0) fL MCH 31.4 (27.0-32.0) pg MCHC 33.5 (31.0-37.0) g/dL RDW Std Deviation 50.1 (28.0-62.0) fl RDW Coeff of Gaye 15 (11.0-15.0) % Plt Count 182 (150-400) K/uL MPV 11.40 (7.40-12.00) fL Neut % (Auto) 68.1 (48.0-80.0) % Lymph % (Auto) 15.4 L (16.0-40.0) % [place] % (Auto) 8.7 (0.0-15.0) % Eos % (Auto) 7.0 (0.0-7.0) % Baso % (Auto) 0.8 (0.0-1.5) % Neut # (Auto) 6.2 H (1.4-5.7) K/uL Lymph # (Auto) 1.4 (0.6-2.4) K/uL [place] # (Auto) 0.8 (0.0-0.8) K/uL Eos # (Auto) 0.6 (0.0-0.7) K/uL Baso # (Auto) 0.1 (0.0-0.1) K/uL Nucleated RBC % 0.0 /100WBC Nucleated RBCs # 0 K/uL INR 0.99 Sodium 139 (136-148) mmol/L Potassium 3.8 (3.5-5.1) mmol/L Chloride 104 (98-107) mmol/L Carbon Dioxide 27.8 (21.0-32.0) mmol/L BUN 28 H (7.0-18.0) mg/dL Creatinine 1.3 (0.8-1.3) mg/dL Est Cr Clr Drug Dosing 36.81 mL/min Estimated GFR (MDRD) 52.3 ml/min Glucose 98 (74-106) mg/dL Calcium 8.6 (8.5-10.1) mg/dL Total Bilirubin 0.8 (0.2-1.0) mg/dL AST 18 (15-37) IU/L ALT 18 (14-63) IU/L Alkaline Phosphatase 69 (46-116) U/L Troponin I < 0.050 (0.000-0.056) ng/mL B-Natriuretic Peptide (<100) PG/ML Total Protein 6.6 (6.4-8.2) g/dL Albumin 3.4 (3.4-5.0) g/dL Globulin 3.2 (2.0-3.5) g/dL Albumin/Globulin Ratio 1.1 L (1.3-2.8) Urine Color Urine Appearance Urine pH (5.0-8.0) Ur Specific [place] (1.001-1.035) Urine Protein (NEGATIVE) mg/dL Urine Glucose (UA) (NEGATIVE) mg/dL Urine Ketones (NEGATIVE) mg/dL Urine Occult Blood (NEGATIVE) Urine Nitrite (NEGATIVE) Urine Bilirubin (NEGATIVE) Urine Urobilinogen (<2.0) EU/dL Ur Leukocyte Esterase (NEGATIVE) Urine RBC (0-2/HPF) Urine WBC (0-5/HPF) Ur Epithelial Cells (NONE-FEW) Urine Bacteria (NEGATIVE) 05/18/18 05/18/18 05/19/18 Range/Units 13:10 14:30 05:15 WBC 8.52 (4.0-11.0) K/uL RBC 4.14 L (4.50-5.90) M/uL Hgb 13.0 (13.0-17.0) g/dL Hct 38.8 (38.0-50.0) % MCV 93.7 (80.0-98.0) fL MCH 31.4 (27.0-32.0) pg MCHC 33.5 (31.0-37.0) g/dL RDW Std Deviation 49.2 (28.0-62.0) fl RDW Coeff of Gaye 15 (11.0-15.0) % Plt Count 166 (150-400) K/uL MPV 11.80 (7.40-12.00) fL Neut % (Auto) 64.3 (48.0-80.0) % Lymph % (Auto) 11.7 L (16.0-40.0) % [place] % (Auto) 11.9 (0.0-15.0) % Eos % (Auto) 10.6 H (0.0-7.0) % Baso % (Auto) 1.5 (0.0-1.5) % Neut # (Auto) 5.5 (1.4-5.7) K/uL Lymph # (Auto) 1.0 (0.6-2.4) K/uL [place] # (Auto) 1.0 H (0.0-0.8) K/uL Eos # (Auto) 0.9 H (0.0-0.7) K/uL Baso # (Auto) 0.1 (0.0-0.1) K/uL Nucleated RBC % 0.0 /100WBC Nucleated RBCs # 0 K/uL INR Sodium (136-148) mmol/L Potassium (3.5-5.1) mmol/L Chloride (98-107) mmol/L Carbon Dioxide (21.0-32.0) mmol/L BUN (7.0-18.0) mg/dL Creatinine (0.8-1.3) mg/dL Est Cr Clr Drug Dosing mL/min Estimated GFR (MDRD) ml/min Glucose (74-106) mg/dL Calcium (8.5-10.1) mg/dL Total Bilirubin (0.2-1.0) mg/dL AST (15-37) IU/L ALT (14-63) IU/L Alkaline Phosphatase (46-116) U/L Troponin I (0.000-0.056) ng/mL B-Natriuretic Peptide 647 H (<100) PG/ML Total Protein (6.4-8.2) g/dL Albumin (3.4-5.0) g/dL Globulin (2.0-3.5) g/dL Albumin/Globulin Ratio (1.3-2.8) Urine Color YELLOW Urine Appearance CLEAR Urine pH 7.0 (5.0-8.0) Ur Specific [place] 1.015 (1.001-1.035) Urine Protein NEGATIVE (NEGATIVE) mg/dL Urine Glucose (UA) NEGATIVE (NEGATIVE) mg/dL Urine Ketones NEGATIVE (NEGATIVE) mg/dL Urine Occult Blood NEGATIVE (NEGATIVE) Urine Nitrite NEGATIVE (NEGATIVE) Urine Bilirubin NEGATIVE (NEGATIVE) Urine Urobilinogen 1.0 (<2.0) EU/dL Ur Leukocyte Esterase SMALL (NEGATIVE) Urine RBC 0-1 (0-2/HPF) Urine WBC 0-1 (0-5/HPF) Ur Epithelial Cells RARE (NONE-FEW) Urine Bacteria RARE (NEGATIVE) 05/19/18 Range/Units 05:15 WBC (4.0-11.0) K/uL RBC (4.50-5.90) M/uL Hgb (13.0-17.0) g/dL Hct (38.0-50.0) % MCV (80.0-98.0) fL MCH (27.0-32.0) pg MCHC (31.0-37.0) g/dL RDW Std Deviation (28.0-62.0) fl RDW Coeff of Gaye (11.0-15.0) % Plt Count (150-400) K/uL MPV (7.40-12.00) fL Neut % (Auto) (48.0-80.0) % Lymph % (Auto) (16.0-40.0) % [place] % (Auto) (0.0-15.0) % Eos % (Auto) (0.0-7.0) % Baso % (Auto) (0.0-1.5) % Neut # (Auto) (1.4-5.7) K/uL Lymph # (Auto) (0.6-2.4) K/uL [place] # (Auto) (0.0-0.8) K/uL Eos # (Auto) (0.0-0.7) K/uL Baso # (Auto) (0.0-0.1) K/uL Nucleated RBC % /100WBC Nucleated RBCs # K/uL INR Sodium 137 (136-148) mmol/L Potassium 3.6 (3.5-5.1) mmol/L Chloride 104 (98-107) mmol/L Carbon Dioxide 25.6 (21.0-32.0) mmol/L BUN 24 H (7.0-18.0) mg/dL Creatinine 1.2 (0.8-1.3) mg/dL Est Cr Clr Drug Dosing 45.63 mL/min Estimated GFR (MDRD) 57.4 ml/min Glucose 98 (74-106) mg/dL Calcium 8.5 (8.5-10.1) mg/dL Total Bilirubin (0.2-1.0) mg/dL AST (15-37) IU/L ALT (14-63) IU/L Alkaline Phosphatase (46-116) U/L Troponin I (0.000-0.056) ng/mL B-Natriuretic Peptide (<100) PG/ML Total Protein (6.4-8.2) g/dL Albumin (3.4-5.0) g/dL Globulin (2.0-3.5) g/dL Albumin/Globulin Ratio (1.3-2.8) Urine Color Urine Appearance Urine pH (5.0-8.0) Ur Specific [place] (1.001-1.035) Urine Protein (NEGATIVE) mg/dL Urine Glucose (UA) (NEGATIVE) mg/dL Urine Ketones (NEGATIVE) mg/dL Urine Occult Blood (NEGATIVE) Urine Nitrite (NEGATIVE) Urine Bilirubin (NEGATIVE) Urine Urobilinogen (<2.0) EU/dL Ur Leukocyte Esterase (NEGATIVE) Urine RBC (0-2/HPF) Urine WBC (0-5/HPF) Ur Epithelial Cells (NONE-FEW) Urine Bacteria (NEGATIVE) Med Orders - Current: Current Medications Acetaminophen (Tylenol) 650 mg PO Q4H PRN PRN Reason: Pain (mild 1-3) Last Admin: 05/18/18 21:05 Dose: 650 mg Albuterol/Ipratropium (Duoneb 3.0-0.5 Mg/3 Ml) 3 ml NEB Q4HRRT PRN PRN Reason: Shortness Of Breath/wheezing Alprazolam (Xanax) 0.25 mg PO TID [facility] Last Admin: 05/19/18 06:58 Dose: 0.25 mg Aspirin (Halfprin) 81 mg PO DAILY [facility] Azithromycin (Zithromax) 500 mg PO Q24H [facility] Cetirizine HCl (Zyrtec) 10 mg PO BEDTIME [facility] Last Admin: 05/18/18 20:38 Dose: 10 mg Citalopram Hydrobromide (Celexa) 40 mg PO DAILY [facility] Finasteride (Proscar) 5 mg PO DAILY [facility] Heparin Sodium (Porcine) (Heparin Sodium) 5,000 units SUBCUT Q12H [facility] Last Admin: 05/18/18 20:37 Dose: 5,000 units Ceftriaxone Sodium/Dextrose 1 (gm/ Premix) 50 mls @ 100 mls/hr IV Q24H [facility] Latanoprost (Xalatan 0.005% Ophth Soln) 0 ml EYEBOTH BEDTIME [facility] Last Admin: 05/18/18 20:40 Dose: 1 drop Ondansetron HCl (Zofran) 4 mg IVPUSH Q4H PRN PRN Reason: Nausea Lutein [Lutein] 20 (Mg) 1 each PO DAILY [facility] Simvastatin (Zocor) 5 mg PO BEDTIME [facility] Last Admin: 05/18/18 20:38 Dose: 5 mg Sodium Chloride (Saline Flush) 10 ml FLUSH ASDIRECTED PRN PRN Reason: Keep Vein Open Last Admin: 05/18/18 13:30 Dose: 10 ml Sodium Chloride (Saline Flush) 2.5 ml FLUSH ASDIRECTED PRN PRN Reason: Keep Vein Open Last Admin: 05/18/18 13:30 Dose: 2.5 ml Tamsulosin HCl (Flomax) 0.4 mg PO DAILY [facility] Triamterene/HCTZ (Maxzide 25-37.5 Mg) 1 each PO DAILY [facility] Discontinued Medications Sodium Chloride (Normal Saline) 500 mls @ 999 mls/hr IV STAT [facility] Last Admin: 05/18/18 13:30 Dose: 999 mls/hr Azithromycin 500 mg/ Sodium (Chloride) 250 mls @ 250 mls/hr IV ONETIME ONE Stop: 05/18/18 16:05 Last Admin: 05/18/18 16:17 Dose: 250 mls/hr Ceftriaxone Sodium/Dextrose 1 (gm/ Premix) 50 mls @ 100 mls/hr IV ONETIME ONE Stop: 05/18/18 15:35 Last Admin: 05/18/18 15:23 Dose: 100 mls/hr Sodium Chloride (Normal Saline) 1,000 mls @ 999 mls/hr IV STAT ONE Stop: 05/18/18 16:13 Last Admin: 05/18/18 16:05 Dose: Not Given Sodium Chloride (Normal Saline) 1,000 mls @ 125 mls/hr IV STAT ONE Stop: 05/18/18 23:15 Last Admin: 05/18/18 15:23 Dose: 125 mls/hr Lorazepam (Ativan) 0.5 mg IVPUSH ONETIME ONE Stop: 05/18/18 13:25 Last Admin: 05/18/18 13:32 Dose: 0.5 mg - Exam Quality Assessment: Reports: DVT Prophylaxis. Denies: Supplemental Oxygen General: Reports: Alert, Oriented, Cooperative, No Acute Distress Lungs: Reports: Clear to Auscultation, Normal Respiratory Effort Cardiovascular: Reports: Regular Rate, Regular Rhythm GI/Abdominal Exam: Normal Bowel Sounds, Soft, Non-Tender Back Exam: Reports: Normal Inspection, Full Range of Motion Extremities: Normal Inspection, Normal Range of Motion, Non-Tender, No Pedal Edema Neurological: Reports: No New Focal Deficit Psy/Mental Status: Reports: Alert, Normal Affect, Normal Mood
[2018-05-19] MEDS ORDERED: Citalopram 20 MG Tab PO SCH (09:00)
[2018-05-19] MEDS ORDERED: Lutein [Lutein] 20 MG PO SCH (09:00)
[2018-05-19] MEDS ORDERED: Finasteride 5 MG Tab PO SCH (09:00)
[2018-05-19] MEDS ORDERED: Hydrochlorothiazide/Triamterene 25-37.5 Tab PO SCH (09:00)
[2018-05-19] MEDS ORDERED: Aspirin 81 MG Tab.EC PO SCH (09:00)
[2018-05-19] MEDS ORDERED: Tamsulosin 0.4 MG Cap.ER PO SCH (09:00)
[2018-05-19] MEDS: Heparin Sodium 5,000 Units/ML Vial SUBCUT SCH (09:09)
[2018-05-19 10:22] VITALS: BP 131/71
[2018-05-19] MEDS ORDERED: Azithromycin 250 MG Tab PO SCH (12:00)
[2018-05-19] MEDS ORDERED: cefTRIAXone 1 GM in Premix Bag 1 BAG IV SCH (14:00)
== END 2018-05-19 12:10 | disposition home or self-care (01) ==
LOC: MW.ED 13:00 → MW.MS 15:55
PROVIDERS: ADMIT Internal Medicine; ATTEND Internal Medicine
DX: J18.1 Lobar pneumonia, unspecified organism (principal); I10 Essential (primary) hypertension; E11.9 Type 2 diabetes mellitus without complications; E78.5 Hyperlipidemia, unspecified; N40.0 Benign prostatic hyperplasia without lower urinary tract symptoms; G89.29 Other chronic pain; M25.562 Pain in left knee; M25.561 Pain in right knee; F41.9 Anxiety disorder, unspecified; Z79.82 Long term (current) use of aspirin; Z79.899 Other long term (current) drug therapy
CPT/HCPCS: 36415; 71045; 80048; 80053; 81001; 83880; 84484; 85025; 85610; 87086; 93005; 96361; 96365; 96367; 96375; 99285; A9270; J0456; J0696; J1644; J2060; J7040; J7050

== ENCOUNTER 2018-12-25 16:11 | Emergency (ER) | payer MEDICARE, BC ==
[2018-12-25 16:25] VITALS: BP 94/66
[2018-12-25] MEDS ORDERED: Sodium Chloride 0.9% 1,000 ML IV ONE (16:31)
--- NOTE | 2018-12-25 16:44 | EDM.PDOC ---
ED HPI GENERAL MEDICAL PROBLEM - General Chief Complaint: Exposure to Heat or Cold Stated Complaint: DEMENTIA Time Seen by Provider: 12/25/18 16:24 Source of Information: Reports: Patient History Limitations: Reports: No Limitations - History of Present Illness INITIAL COMMENTS - FREE TEXT/NARRATIVE: HISTORY AND PHYSICAL: History of present illness: Patient is an 88-year-old male who presents to the emergency room by EMS with concerns of cold exposure. Patient does have an underlying dementia (normal variance). states that she left the house approximately 2 hours prior to his emergency room visit, spoke with him on the phone 45 minutes prior to his emergency room visit. Upon EMS talking with him he states he was outside for 10 minutes. Bystander seen the patient outside his home waving around his cane. They bundled him up and called EMS. Patient denies hitting his head or any loss of consciousness. reports that she is very frustrated as he does have underlying dementia and does need frequent reminding and observation. She states he has never left the house on his own before. Patient does have underlying anxiety Review of systems: As per history of present illness and below otherwise all systems reviewed and negative. Past medical history: As per history of present illness and as reviewed below otherwise noncontributory. Surgical history: As per history of present illness and as reviewed below otherwise noncontributory. Social history: See social history for further information Family history: As per history of present illness and as reviewed below otherwise noncontributory. Physical exam: General: Well-developed and well-nourished 88-year-old male. Alert, pleasantly confused but appears in no acute distress. HEENT: Atraumatic, normocephalic, pupils equal and reactive bilaterally, negative for conjunctival pallor or scleral icterus, mucous membranes moist, TMs normal bilaterally, throat clear, neck supple, nontender, trachea midline. No drooling or trismus noted. No meningeal signs. No hot potato voice noted. Lungs: Clear to auscultation, breath sounds equal bilaterally, chest nontender. Heart: S1S2, regular rate and rhythm without overt murmur Abdomen: Soft, nondistended, nontender. Negative for masses or hepatosplenomegaly. Negative for costovertebral tenderness. Pelvis: Stable nontender. Genitourinary: Deferred. Rectal: Deferred. Skin: Intact, warm, dry. No lesions or rashes noted. Extremities: Atraumatic, negative for cords or calf pain. Neurovascular unremarkable. Neuro: Awake, alert, pleasantly confused. Cranial nerves II through XII unremarkable. Cerebellum unremarkable. Motor and sensory unremarkable throughout. Exam nonfocal. Notes: Patient had 1 L of warmed saline IV upon arriving to the emergency room. is at bedside. Vital signs are stable. No injury noted to skin. Patient and are agreeable to routine lab work and head CT. states that the patient does have extreme anxiety and does take multiple medications routinely at home for this. Patient was to have his Xanax at 5 PM his evening, requesting that something be given for his symptoms. BUN and creatinine are slightly elevated, patient did receive 1 L fluids. The BUN and creatinine have been elevated previously, this may be due to dehydration at this time as his oral mucosa does appear dry. He states he does not drink much water. Otherwise findings are unremarkable. I did offer them admission which she declines. The is comfortable with him being at home and states he will follow up with her primary child care teacher on Thursday. Neither or patient have any further questions. They both voices understanding. Diagnostics: CBC, CMP, UA, EKG, Head CT Therapeutics: Xanax Impression: Elevated Kidney Functions, likely due to dehydration History of Dementia Cold Exposure Plan: 1. Please increase your oral fluids and have your kidney functions reevaluated by her primary care provider as we discussed. 2. Please ensure safety precautions especially during the extreme temperatures ( heat/cold) to make sure that he is safe at home 3. Follow-up with your primary caregiver in the next 1-2 days. Return to the ED as needed and as discussed. Definitive disposition and diagnosis as appropriate pending reevaluation and review of above. - Related Data Allergies Allergy/AdvReac Type Severity Reaction Status Date / Time No Known Allergies Allergy Verified 12/25/18 16:25 Home Meds: Home Meds ALPRAZolam [Xanax] 0.25 mg PO TID 11/15/17 [History] Cetirizine HCl [Zyrtec] 10 mg PO BEDTIME 05/18/18 [History] Citalopram [Citalopram HBr] 2 tab PO DAILY 05/18/18 [History] Finasteride 5 mg PO DAILY 05/18/18 [History] HCTZ/Triamterene [Maxzide 25-37.5 MG] 37.5 tab PO DAILY 05/18/18 [History] Naproxen 500 mg PO BID PRN 05/18/18 [History] Simvastatin [Zocor] 5 mg PO BEDTIME 05/18/18 [History] Tamsulosin HCl 0.4 mg PO DAILY 05/18/18 [History] traZODone HCl [Trazodone HCl] 50 mg PO BEDTIME 05/18/18 [History] Mv-Mn/FA/Vit K/Lycop/Lut/Zeaxa [Ocuvite Eye + Multi Tablet] 1 tab PO DAILY 08/28 [History] Carboxymethylcellulose Sodium [Refresh Plus 0.5%] 1 each EYEBOTH Q1H PRN box [Rx] Cefdinir 300 mg PO BID 7 Days #14 capsule 11/01/18 [Rx] Past Medical History HEENT History: Reports: Other (See Below) Other HEENT History: wears glasses, rowdy hearing aids, has top and bottom dentures Cardiovascular History: Reports: High Cholesterol, Hypertension Respiratory History: Reports: Pneumonia, Recurrent Other Respiratory History: current diagnosis is pneumonia Gastrointestinal History: Reports: Helicobacter Pylori Other Gastrointestinal History: says he has small hernia near [place]. 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, injections in knees a few days ago Neurological History: Reports: None Psychiatric History: Reports: Anxiety Endocrine/Metabolic History: Reports: None Hematologic History: Reports: None Immunologic History: Reports: None Oncologic (Cancer) History: Reports: None Dermatologic History: Reports: None - Infectious Disease History Infectious Disease History: Reports: Chicken Pox, Measles, Mumps - Past Surgical History Head Surgeries/Procedures: Reports: None HEENT Surgical History: Reports: None Cardiovascular Surgical History: Reports: None Respiratory Surgical History: Reports: None GI Surgical History: Reports: None Male Surgical History: Reports: None Endocrine Surgical History: Reports: None Neurological Surgical History: Reports: None Musculoskeletal Surgical History: Reports: None Oncologic Surgical History: Reports: None Dermatological Surgical History: Reports: None Social & Family History - Family History Family Medical History: Noncontributory - Tobacco Use Smoking Status *Q: Never Smoker Second Hand Smoke Exposure: No - Caffeine Use Caffeine Use: Reports: None - Recreational Drug Use Recreational Drug Use: No - Living Situation & Occupation Living situation: Reports: Occupation: Retired ([employer]) ED ROS GENERAL - Review of Systems Review Of Systems: ROS reveals no pertinent complaints other than HPI. ED EXAM, GENERAL - Physical Exam Exam: See Below (See dictation) Course - Vital Signs Last Recorded V/S: Last Vital Signs Temp 95.5 F 12/25/18 16:24 Pulse 88 12/25/18 16:24 Resp 18 12/25/18 16:24 BP 94/66 12/25/18 16:24 Pulse Ox 95 12/25/18 16:24 - Orders/Labs/Meds Orders: Active Orders 24 hr Category Date Time Status EKG Documentation Completion [RC] STAT Care 12/25/18 16:31 Active Labs: Laboratory Tests 12/25/18 12/25/18 12/25/18 Range/Units 16:47 16:47 17:48 WBC 6.69 (4.0-11.0) K/uL RBC 3.83 L (4.50-5.90) M/uL Hgb 11.8 L (13.0-17.0) g/dL Hct 35.3 L (38.0-50.0) % MCV 92.2 (80.0-98.0) fL MCH 30.8 (27.0-32.0) pg MCHC 33.4 (31.0-37.0) g/dL RDW Std Deviation 52.7 (28.0-62.0) fl RDW Coeff of Gaye 16 H (11.0-15.0) % Plt Count 173 (150-400) K/uL MPV 11.50 (7.40-12.00) fL Neut % (Auto) 66.2 (48.0-80.0) % Lymph % (Auto) 11.1 L (16.0-40.0) % [place] % (Auto) 11.2 (0.0-15.0) % Eos % (Auto) 10.2 H (0.0-7.0) % Baso % (Auto) 1.3 (0.0-1.5) % Neut # (Auto) 4.4 (1.4-5.7) K/uL Lymph # (Auto) 0.7 (0.6-2.4) K/uL [place] # (Auto) 0.8 (0.0-0.8) K/uL Eos # (Auto) 0.7 (0.0-0.7) K/uL Baso # (Auto) 0.1 (0.0-0.1) K/uL Nucleated RBC % 0.0 /100WBC Nucleated RBCs # 0 K/uL Sodium 140 (136-148) mmol/L Potassium 3.9 (3.5-5.1) mmol/L Chloride 106 (98-107) mmol/L Carbon Dioxide 23.3 (21.0-32.0) mmol/L BUN 25 H (7.0-18.0) mg/dL Creatinine 1.5 H (0.8-1.3) mg/dL Est Cr Clr Drug Dosing 35.82 mL/min Estimated GFR (MDRD) 44.3 ml/min Glucose 96 (74-106) mg/dL Calcium 9.0 (8.5-10.1) mg/dL Total Bilirubin 1.0 (0.2-1.0) mg/dL AST 17 (15-37) IU/L ALT 12 L (14-63) IU/L Alkaline Phosphatase 67 (46-116) U/L Total Protein 6.1 L (6.4-8.2) g/dL Albumin 3.2 L (3.4-5.0) g/dL Globulin 2.9 (2.6-4.0) g/dL Albumin/Globulin Ratio 1.1 (0.9-1.6) Urine Color YELLOW Urine Appearance CLEAR Urine pH 6.0 (5.0-8.0) Ur Specific [place] 1.015 (1.001-1.035) Urine Protein NEGATIVE (NEGATIVE) mg/dL Urine Glucose (UA) NEGATIVE (NEGATIVE) mg/dL Urine Ketones NEGATIVE (NEGATIVE) mg/dL Urine Occult Blood NEGATIVE (NEGATIVE) Urine Nitrite NEGATIVE (NEGATIVE) Urine Bilirubin NEGATIVE (NEGATIVE) Urine Urobilinogen 4.0 H (<2.0) EU/dL Ur Leukocyte Esterase NEGATIVE (NEGATIVE) Meds: Medications Discontinued Medications Generic Name Dose Route Start Last Admin Trade Name Freq PRN Reason Stop Dose Admin Alprazolam 0.25 mg 12/25/18 18:14 Xanax PO 12/25/18 18:15 ONETIME ONE Sodium Chloride 1,000 mls @ 999 mls/hr 12/25/18 16:31 12/25/18 16:50 Normal Saline IV 12/25/18 17:31 Not Given STAT ONE Departure - Departure Time of Disposition: 18:20 Disposition: Home, Self-Care 01 Clinical Impression: History of dementia, Dehydration Cold, exposure to Qualifiers: Encounter type: initial encounter Qualified Code(s): T69.9XXA - Effect of reduced temperature, unspecified, initial encounter - Discharge Information Referrals: PCP,None [Primary Care Provider] - Forms: ED Department Discharge Additional Instructions: The following information is given to patients seen in the emergency department who are being discharged to home. This information is to outline your options for follow-up care. We provide all patients seen in our emergency department with a follow-up referral. The need for follow-up, as well as the timing and circumstances, are variable depending upon the specifics of your emergency department visit. If you don't have a primary care physician on staff, we will provide you with a referral. We always advise you to contact your personal physician following an emergency department visit to inform them of the circumstance of the visit and for follow-up with them and/or the need for any referrals to a consulting specialist. The emergency department will also refer you to a specialist when appropriate. This referral assures that you have the opportunity for follow-up care with a specialist. All of these measure are taken in an effort to provide you with optimal care, which includes your follow-up. Under all circumstances we always encourage you to contact your private physician who remains a resource for coordinating your care. When calling for follow-up care, please make the office aware that this follow-up is from your recent emergency room visit. If for any reason you are refused follow-up, please contact the [facility] Emergency Department at and asked to speak to the emergency department charge nurse. [facility] [address] [place] [id number] [address] [id number] 1. Please increase your oral fluids and have your kidney functions reevaluated by her primary care provider as we discussed. 2. Please ensure safety precautions especially during the extreme temperatures ( heat/cold) to make sure that he is safe at home 3. Follow-up with your primary caregiver in the next 1-2 days. Return to the ED as needed and as discussed. - My Orders Last 24 Hours: My Active Orders 12/25/18 16:31 EKG Documentation Completion [RC] STAT - Assessment/Plan Last 24 Hours: My Active Orders 12/25/18 16:31 EKG Documentation Completion [RC] STAT
--- NOTE | 2018-12-25 17:59 | CR ---
Pain shortness of breath Portable chest. Findings Low lung volumes. Prominent cardiac silhouette. Basilar atelectasis and or infiltrate. Indistinctness of the costophrenic angles could represent tiny effusions. Dictated by Corina Huggins MD @ Dec 25 2018 5:57PM Signed by Dr. Corina Huggins @ Dec 25 2018 5:58PM
[2018-12-25] MEDS ORDERED: ALPRAZolam 0.25 MG Tab PO ONE (18:14)
--- NOTE | 2018-12-25 18:18 | CT ---
INDICATION: Confusion TECHNIQUE: CT head without contrast. COMPARISON: 08/28/2018 FINDINGS: CSF spaces: Within normal limits for age. Brain parenchyma: The hatch-white differentiation is normal. No sign of mass, hemorrhage, or midline shift. Diffuse volume loss. Skull base and calvarium: The visualized paranasal sinuses and mastoid air cells demonstrate no acute or significant findings. The visualized orbits are grossly unremarkable. No skull fractures. IMPRESSION: No acute intracranial abnormalities. Diffuse volume loss. Dictated by Rome Olvera MD @ 12/25/2018 6:15:47 PM Please note that all CT scans at this facility use dose modulation, iterative reconstruction, and/or weight-based dosing when appropriate to reduce radiation dose to as low as reasonably achievable. Dictated by: Rome Olvera MD @ 12/25/2018 18:15:54 (Electronically Signed)
== END 2018-12-25 18:49 | disposition home or self-care (01) ==
LOC: MW.ED 16:11
DX: E86.0 Dehydration (principal); T69.9XXA Effect of reduced temperature, unspecified, initial encounter; F03.90 Unspecified dementia, unspecified severity, without behavioral disturbance, psychotic disturbance, mood disturbance, and anxiety; X31.XXXA Exposure to excessive natural cold, initial encounter
CPT/HCPCS: 36415; 70450; 71045; 80053; 81003; 85025; 93005; 99285; A9270; 99284

== ENCOUNTER 2019-02-06 15:02 | Emergency (ER) | payer MEDICARE, BC ==
[2019-02-06 15:14] VITALS: BP 119/68
--- NOTE | 2019-02-06 15:26 | EDM.PDOC ---
ED HPI GENERAL MEDICAL PROBLEM - General Chief Complaint: General Stated Complaint: AMB Time Seen by Provider: 02/06/19 15:24 Source of Information: Reports: Patient, EMS - History of Present Illness INITIAL COMMENTS - FREE TEXT/NARRATIVE: HISTORY AND PHYSICAL: History of present illness: Patient arrives via EMS Patient has a history of dementia generally cared for by his however family has cameras installed in his home and as noted that his has not been present yesterday or today they feel she may be out gambling, patient's daughters called police to do a welfare check as they live in [place] but monitor mom and dad with cameras from a [facility], they're planning to travel to [place] today. However dad arrives as such No complaints Review of systems: As per history of present illness and below otherwise all systems reviewed and negative. Past medical history: As per history of present illness and as reviewed below otherwise noncontributory. Surgical history: As per history of present illness and as reviewed below otherwise noncontributory. Social history: No reported history of drug or alcohol abuse. Family history: As per history of present illness and as reviewed below otherwise noncontributory. Physical exam: HEENT: Atraumatic, normocephalic, pupils reactive, negative for conjunctival pallor or scleral icterus, mucous membranes moist, throat clear, neck supple, nontender, trachea midline. Lungs: Clear to auscultation, breath sounds equal bilaterally, chest nontender. Heart: S1S2, regular, negative for clicks, rubs, or JVD. Abdomen: Soft, nondistended, nontender. Negative for masses or hepatosplenomegaly. Negative for costovertebral tenderness. Pelvis: Stable nontender. Genitourinary: Deferred. Rectal: Deferred. Extremities: Atraumatic, negative for cords or calf pain. Neurovascular unremarkable. Neuro: Awake, alert, oriented. Cranial nerves II through XII unremarkable. Cerebellum unremarkable. Motor and sensory unremarkable throughout. Exam nonfocal. Diagnostics: [CBC CMP UA Chest 1 view EKG] Therapeutics: [Did provide his baseline daily medications as ordered below Social work consult-[facility], apparently not available on weekends VS [facility], apparently not available on weekends [place] police department is involved and the daughter that is a legal power of [employer] attorney now present and is working to obtain an emergency guardianship, at current unable to reach who has guardianship Appropriate paperwork is in place and visiting [place] are here and will be taking him home with his daughter so we will release the patient with his daughter and the visiting [place] care Patient is currently in no distress eating pizza and quite happy and comfortable ] Impression: [] history of dementia Pleural effusion-unchanged from October Chronic history at baseline Medical screening exam Definitive disposition and diagnosis as appropriate pending reevaluation and review of above. - Related Data Allergies Allergy/AdvReac Type Severity Reaction Status Date / Time No Known Allergies Allergy Verified 12/25/18 16:25 Home Meds: Home Meds ALPRAZolam [Xanax] 1 tab PO TID PRN 02/06/19 [History] Cetirizine HCl 1 tab PO BEDTIME 02/06/19 [History] Citalopram [Citalopram HBr] 40 mg PO DAILY 02/06/19 [History] Finasteride 1 tab PO DAILY 02/06/19 [History] Lutein/Min/Vit C/Vit E Acetate [Ocuvite Lutein] 1 tab PO DAILY 02/06/19 [History ] Naproxen 250 mg PO BID PRN 02/06/19 [History] Simvastatin 5 mg PO DAILY 02/06/19 [History] Tamsulosin HCl [Flomax] 1 cap PO DAILY 02/06/19 [History] Triamterene/Hydrochlorothiazid [Triamterene-HCTZ 37.5-25 MG] 1 tab PO DAILY [History] traZODone HCl [Trazodone HCl] 50 mg PO DAILY 02/06/19 [History] Past Medical History HEENT History: Reports: Other (See Below) Other HEENT History: wears glasses, rowdy hearing aids, has top and bottom dentures Cardiovascular History: Reports: High Cholesterol, Hypertension Respiratory History: Reports: Pneumonia, Recurrent Other Respiratory History: current diagnosis is pneumonia Gastrointestinal History: Reports: Helicobacter Pylori Other Gastrointestinal History: says he has small hernia near [place]. 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, injections in knees a few days ago Neurological History: Reports: None Psychiatric History: Reports: Anxiety Endocrine/Metabolic History: Reports: None Hematologic History: Reports: None Immunologic History: Reports: None Oncologic (Cancer) History: Reports: None Dermatologic History: Reports: None - Infectious Disease History Infectious Disease History: Reports: Chicken Pox, Measles, Mumps - Past Surgical History Head Surgeries/Procedures: Reports: None HEENT Surgical History: Reports: None Cardiovascular Surgical History: Reports: None Respiratory Surgical History: Reports: None GI Surgical History: Reports: None Male Surgical History: Reports: None Endocrine Surgical History: Reports: None Neurological Surgical History: Reports: None Musculoskeletal Surgical History: Reports: None Oncologic Surgical History: Reports: None Dermatological Surgical History: Reports: None Social & Family History - Family History Family Medical History: Noncontributory - Caffeine Use Caffeine Use: Reports: None - Living Situation & Occupation Living situation: Reports: Occupation: Retired () ED ROS GENERAL - Review of Systems Review Of Systems: See Below ED EXAM, GENERAL - Physical Exam Exam: See Below Course - Vital Signs Last Recorded V/S: Last Vital Signs Temp 97.4 F 02/06/19 15:11 Pulse 85 02/06/19 15:11 Resp 16 02/06/19 15:11 BP 119/68 02/06/19 15:11 Pulse Ox 96 02/06/19 15:11 - Orders/Labs/Meds Orders: Active Orders 24 hr Category Date Time Status EKG 12 Lead [EKG Documentation Completion] [RC] STAT Care 02/06/19 15:18 Active CULTURE URINE [RM] Stat Lab 02/06/19 16:54 Received Labs: Laboratory Tests 02/06/19 02/06/19 02/06/19 Range/Units 15:28 15:28 16:54 WBC 7.30 (4.0-11.0) K/uL RBC 4.12 L (4.50-5.90) M/uL Hgb 12.9 L (13.0-17.0) g/dL Hct 39.0 (38.0-50.0) % MCV 94.7 (80.0-98.0) fL MCH 31.3 (27.0-32.0) pg MCHC 33.1 (31.0-37.0) g/dL RDW Std Deviation 55.3 (28.0-62.0) fl RDW Coeff of Gaye 16 H (11.0-15.0) % Plt Count 149 L (150-400) K/uL MPV 12.30 H (7.40-12.00) fL Neut % (Auto) 72.2 (48.0-80.0) % Lymph % (Auto) 10.3 L (16.0-40.0) % [place] % (Auto) 9.3 (0.0-15.0) % Eos % (Auto) 7.4 H (0.0-7.0) % Baso % (Auto) 0.8 (0.0-1.5) % Neut # (Auto) 5.3 (1.4-5.7) K/uL Lymph # (Auto) 0.8 (0.6-2.4) K/uL [place] # (Auto) 0.7 (0.0-0.8) K/uL Eos # (Auto) 0.5 (0.0-0.7) K/uL Baso # (Auto) 0.1 (0.0-0.1) K/uL Nucleated RBC % 0.0 /100WBC Nucleated RBCs # 0 K/uL Sodium 141 (136-148) mmol/L Potassium 4.1 (3.5-5.1) mmol/L Chloride 105 (98-107) mmol/L Carbon Dioxide 26.2 (21.0-32.0) mmol/L BUN 35 H (7.0-18.0) mg/dL Creatinine 1.6 H (0.8-1.3) mg/dL Est Cr Clr Drug Dosing TNP Estimated GFR (MDRD) 41.1 ml/min Glucose 93 (74-106) mg/dL Calcium 8.9 (8.5-10.1) mg/dL Total Bilirubin 1.4 H (0.2-1.0) mg/dL AST 16 (15-37) IU/L ALT 19 (14-63) IU/L Alkaline Phosphatase 68 (46-116) U/L Total Protein 7.0 (6.4-8.2) g/dL Albumin 3.7 (3.4-5.0) g/dL Globulin 3.3 (2.6-4.0) g/dL Albumin/Globulin Ratio 1.1 (0.9-1.6) Urine Color YELLOW Urine Appearance CLEAR Urine pH 7.0 (5.0-8.0) Ur Specific [place] 1.015 (1.001-1.035) Urine Protein NEGATIVE (NEGATIVE) mg/dL Urine Glucose (UA) NEGATIVE (NEGATIVE) mg/dL Urine Ketones TRACE H (NEGATIVE) mg/dL Urine Occult Blood NEGATIVE (NEGATIVE) Urine Nitrite NEGATIVE (NEGATIVE) Urine Bilirubin NEGATIVE (NEGATIVE) Urine Urobilinogen 4.0 H (<2.0) EU/dL Ur Leukocyte Esterase SMALL H (NEGATIVE) Urine RBC 0-2 (0-2/HPF) Urine WBC 2-4 (0-5/HPF) Ur Epithelial Cells RARE (NONE-FEW) Calcium Oxalate Crystal RARE (NEGATIVE) Amorphous Sediment FEW (NEGATIVE) Urine Bacteria FEW (NEGATIVE) Urine Mucus FEW (NONE-MOD) Meds: Medications Discontinued Medications Generic Name Dose Route Start Last Admin Trade Name Freq PRN Reason Stop Dose Admin Citalopram Hydrobromide 20 mg 02/06/19 15:54 02/06/19 16:28 Celexa PO 02/06/19 15:55 20 mg ONETIME ONE Administration Citalopram Hydrobromide 20 mg 02/06/19 16:20 02/06/19 16:29 Celexa PO 02/06/19 16:21 Not Given ONETIME ONE Simvastatin 10 mg 02/06/19 15:53 02/06/19 16:29 Zocor PO 02/06/19 15:54 10 mg ONETIME ONE Administration Simvastatin 10 mg 02/06/19 16:20 02/06/19 16:29 Zocor PO 02/06/19 16:21 Not Given ONETIME ONE Tamsulosin HCl 0.4 mg 02/06/19 15:53 02/06/19 16:28 Flomax PO 02/06/19 15:54 0.4 mg ONETIME ONE Administration Departure - Departure Time of Disposition: 17:28 Disposition: Home, Self-Care 01 Condition: Good Clinical Impression: Encounter for medical screening examination - Discharge Information Referrals: PCP,Unknown [Primary Care Provider] - Forms: ED Department Discharge Additional Instructions: The following information is given to patients seen in the emergency department who are being discharged to home. This information is to outline your options for follow-up care. We provide all patients seen in our emergency department with a follow-up referral. The need for follow-up, as well as the timing and circumstances, are variable depending upon the specifics of your emergency department visit. If you don't have a primary care physician on staff, we will provide you with a referral. We always advise you to contact your personal physician following an emergency department visit to inform them of the circumstance of the visit and for follow-up with them and/or the need for any referrals to a consulting specialist. The emergency department will also refer you to a specialist when appropriate. This referral assures that you have the opportunity for follow-up care with a specialist. All of these measure are taken in an effort to provide you with optimal care, which includes your follow-up. Under all circumstances we always encourage you to contact your private physician who remains a resource for coordinating your care. When calling for follow-up care, please make the office aware that this follow-up is from your recent emergency room visit. If for any reason you are refused follow-up, please contact the [facility] emergency department at and asked to speak to the emergency department charge nurse. - My Orders Last 24 Hours: My Active Orders 02/06/19 15:18 EKG 12 Lead [EKG Documentation Completion] [RC] STAT 02/06/19 16:54 CULTURE URINE [RM] Stat - Assessment/Plan Last 24 Hours: My Active Orders 02/06/19 15:18 EKG 12 Lead [EKG Documentation Completion] [RC] STAT 02/06/19 16:54 CULTURE URINE [RM] Stat
[2019-02-06] MEDS ORDERED: Simvastatin 10 MG Tab PO ONE ×2 (15:53→16:20)
[2019-02-06] MEDS ORDERED: Tamsulosin 0.4 MG Cap.ER PO ONE (15:53)
[2019-02-06 15:54] LABS: CHLORIDE,CL 105 mmol/L (98-107); SODIUM,NA 141 mmol/L (136-148)
[2019-02-06] MEDS ORDERED: Citalopram 20 MG Tab PO ONE ×2 (15:54→16:20)
--- NOTE | 2019-02-06 16:17 | CR ---
INDICATION: Chest pain TECHNIQUE: Chest radiograph 1 view COMPARISON: None FINDINGS: Moderate degradation of image quality noted due to body habitus. Mediastinum: The mediastinum is normal in appearance. The heart silhouette is normal in size and morphology. Lung: Left basilar consolidation and small left pleural effusion noted. Trace right pleural effusion suspected. Small lung volumes are present bilaterally. No pneumothorax is identified. Musculoskeletal: Unremarkable for age. IMPRESSION: 1. Left basilar consolidation and small left pleural effusion noted. Trace right pleural effusion suspected. Dictated by Thien Upton MD @ 02/06/2019 4:15:58 PM Dictated by: Thien Upton MD @ 02/06/2019 16:16:00 (Electronically Signed)
== END 2019-02-06 17:39 | disposition home or self-care (01) ==
LOC: MW.ED 15:02
DX: J90 Pleural effusion, not elsewhere classified (principal); F03.90 Unspecified dementia, unspecified severity, without behavioral disturbance, psychotic disturbance, mood disturbance, and anxiety; I10 Essential (primary) hypertension; E78.00 Pure hypercholesterolemia, unspecified; F41.9 Anxiety disorder, unspecified; Z79.899 Other long term (current) drug therapy
CPT/HCPCS: 36415; 71045; 80053; 81001; 85025; 87086; 93005; 99284; A9270